=== PATIENT | male | born 1960 | race Caucasian/White ===

== ENCOUNTER 2018-02-21 11:22 | Emergency (ER) | payer MEDICARE, MEDICAID ==
[~2018-02-21] VITALS: Ht 182.9 cm; Wt 81.7 kg
[~2018-02-21 11:22] MED LIST: AUGMENTIN 875-1 EACH PO; DIAZEPAM 5 MG5 M1; DIAZEPAM10 M1; DULCOLAX; EX-LAX15 M1; FLONASE 0.05%50 MCG NASAL; MIRALAX255 GM; PREDNISONE; PREDNISONE 10 M10 MG PO; PREDNISONE 20 M20 MG PO; PROVENTIL HFA6.7 G1 INH; VALIUM5 MG PO; VISTARIL 25 MG25 M1 OR
[2018-02-21 12:02] LABS: ABSOLUTE BASOPHILS 0.1 thou/uL (0.0-0.2); ABSOLUTE EOSINOPHILS 0.1 thou/uL (0.0-0.7); ABSOLUTE LYMPHOCYTES 1.9 thou/uL (0.8-5.3); ABSOLUTE MONOCYTES 0.6 thou/uL (0.0-1.2); ABSOLUTE NEUTROPHILS 6.1 thou/uL (1.6-8.1); BASOPHILS 0.9 %; EOSINOPHILS 0.9 %; HEMOGLOBIN 14.4 gm/dL (14.0-18.0); LYMPHOCYTES 21.9 %; MCH 31.8 pg (26.0-34.0); MCHC 34.4 g/dL (28.0-37.0); MCV 92.4 fL (80.0-100.0); MONOCYTES 7.1 %; MPV 7.6 fl. (7.2-11.1); NUCLEATED RBCS 0 /100WBC; PLATELET COUNT* 245 thou/uL (150-400); POLYS 69.2 %; RBC 4.55 mil/uL (4.50-6.00); RDW-CV 14.1 % (10.5-14.5); WBC 8.8 thou/uL (4.0-11.0)
[2018-02-21 12:11] LABS: ANION GAP 9 mmol/L (7-16); BUN 16 mg/dL (7-18); CALCIUM 8.1 mg/dL (8.5-10.1); CHLORIDE 105 mmol/L (98-107); CO2 23 mmol/L (21-32); CREATININE 0.9 mg/dL (0.6-1.3); GLUCOSE 118 mg/dL (70-99); POTASSIUM 3.8 mmol/L (3.5-5.1); SODIUM 137 mmol/L (136-145)
[2018-02-21 12:15] LABS: URINE BILIRUBIN NEGATIVE (Negative); URINE BLOOD 1+ (Negative); URINE CLARITY CLEAR; URINE COLOR YELLOW; URINE GLUCOSE-RANDOM NEGATIVE (Negative); URINE KETONES NEGATIVE (Negative); URINE LEUKOCYTES-REFLEX NEGATIVE (Negative); URINE NITRITE-REFLEX NEGATIVE (Negative); URINE PROTEIN NEGATIVE (Negative); URINE UROBILINOGEN 0.2 E.U./dl (0.2-1.0)
[2018-02-21 12:18] LABS: ALBUMIN 3.7 g/dL (3.4-5.0); ALKALINE PHOSPHATASE 79 U/L (46-116); LIPASE 108 U/L (73-393); SGOT 22 U/L (15-37); SGPT 53 U/L (30-65); TOTAL BILIRUBIN 0.3 mg/dL (<0.1-1.0); TROPONIN-I LEVEL <0.06 ng/mL (<0.06)
[2018-02-21 12:20] LABS: BACTERIA-REFLEX 1-9 Few /HPF (None Seen); MUCUS None Seen strn/LPF (None Seen); SQUAMOUS 0-3 Few /LPF (0-3); URINE RBC 3-10 Few /HPF (0-2); URINE WBC-REFLEX 0-5 Rare /HPF (0-5)
[2018-02-21 12:21] LABS: CASTS None Seen /LPF (None Seen); CRYSTALS None Seen /LPF (None Seen)
[2018-02-21 15:17] VITALS: BP 137/85
--- NOTE | 2018-02-22 09:38 | EKG ---
[place] [address] ELECTROCARDIOGRAM REPORT Name: TAJ HERNANDEZ Room: [facility]#: [id number] Admission: 02/21/18 Attend Phys: Discharge: 02/21/18 Date of : 60 Report #: [id number] THIS REPORT FOR: //name// [facility] ED Test Date: 2018-02-21 Test Time: 12:19:14 Pat Name: TAJ HERNANDEZ Department: Room: Gender: M Robotics Engineer: : 1960 Requested By: Gal Syed Order Number: [id number] MD: George Toney Measurements Intervals [place] Rate: 54 P: 75 DC: 188 QRS: 77 QRSD: 91 T: 64 QT: 426 QTc: 404 Interpretive Statements Sinus rhythm Probable left atrial enlargement Nonspecific T abnrm, anterolateral leads Compared to ECG 10/28/2011 22:43:23 No significant changes Electronically Signed On 02-22-2018 9:38:01 CDT by George Toney [email or web address] <ELECTRONICALLY SIGNED> By: George Toney MD, [facility] 02/22/18 0938 1219 1219 George Toney MD, [facility] /EPI
== END 2018-02-21 15:17 | disposition home or self-care (01) ==
LOC: M.ERS 11:22
PROVIDERS: Emergency Medicine
DX: R10.11 Right upper quadrant pain (principal); R31.9 Hematuria, unspecified; N28.89 Other specified disorders of kidney and ureter; F32.9 Major depressive disorder, single episode, unspecified; M54.9 Dorsalgia, unspecified; G89.29 Other chronic pain; Z88.5 Allergy status to narcotic agent; Z91.030 Bee allergy status; R42 Dizziness and giddiness

== ENCOUNTER 2018-03-05 12:05 | Emergency (ER) | payer MEDICARE, MEDICAID ==
[~2018-03-05] VITALS: Ht 182.9 cm; Wt 79.4 kg
[2018-03-05 12:43] LABS: ABSOLUTE BASOPHILS 0.1 thou/uL (0.0-0.2); ABSOLUTE LYMPHOCYTES 1.5 thou/uL (0.8-5.3); ABSOLUTE MONOCYTES 0.5 thou/uL (0.0-1.2); ABSOLUTE NEUTROPHILS 7.8 thou/uL (1.6-8.1); BASOPHILS 0.6 %; EOSINOPHILS 0.4 %; HEMATOCRIT 45.4 % (42.0-52.0); HEMOGLOBIN 15.4 gm/dL (14.0-18.0); LYMPHOCYTES 15.4 %; MCH 31.6 pg (26.0-34.0); MCV 92.8 fL (80.0-100.0); MONOCYTES 5.1 %; MPV 7.9 fl. (7.2-11.1); NUCLEATED RBCS 0 /100WBC; PLATELET COUNT* 270 thou/uL (150-400); POLYS 78.5 %; RDW-CV 13.8 % (10.5-14.5)
[2018-03-05 13:30] LABS: CREATININE 0.9 mg/dL (0.6-1.3)
[2018-03-05 13:40] LABS: ALBUMIN 4.1 g/dL (3.4-5.0); TOTAL BILIRUBIN 0.5 mg/dL (<0.1-1.0); TOTAL PROTEIN 7.7 g/dL (6.4-8.2)
[2018-03-05 14:05] LABS: URINE BILIRUBIN NEGATIVE (Negative); URINE BLOOD TRACE (Negative); URINE CLARITY CLEAR; URINE COLOR YELLOW; URINE GLUCOSE-RANDOM NEGATIVE (Negative); URINE KETONES NEGATIVE (Negative); URINE LEUKOCYTES-REFLEX NEGATIVE (Negative); URINE NITRITE-REFLEX NEGATIVE (Negative); URINE PROTEIN NEGATIVE (Negative); URINE SPECIFIC GRAVITY <= 1.005 (1.005-1.030); URINE UROBILINOGEN 0.2 E.U./dl (0.2-1.0)
[2018-03-05] MEDS ORDERED: BUTALB-APAP-CA1 EACH PO (14:30)
[2018-03-05 14:44] VITALS: BP 155/64
--- NOTE | 2018-03-07 10:28 | EKG ---
[place] [address] ELECTROCARDIOGRAM REPORT Name: TAJ HERNANDEZ Room: [facility]#: [id number] Admission: 03/05/18 Attend Phys: Discharge: 03/05/18 Date of : 60 Report #: [id number] THIS REPORT FOR: //name// [facility] ED Test Date: 2018-03-05 Test Time: 13:03:11 Pat Name: TAJ HERNANDEZ Department: Room: Gender: M Client Service Professional: Domenic CRUZ : 1960 Requested By: Marisol Newberry Order Number: [id number] MD: Demarcus David Measurements Intervals [place] Rate: 53 P: 68 [place]: 188 QRS: 81 QRSD: 98 T: 62 QT: 443 QTc: 416 Interpretive Statements Sinus rhythm Normal ekg Electronically Signed On 03-07-2018 10:28:43 CDT by Demarcus David [email or web address] <ELECTRONICALLY SIGNED> By: Demarcus David MD, [facility] 03/07/18 1028 1303 1303 Demarcus David MD, [facility] /EPI
== END 2018-03-05 14:45 | disposition home or self-care (01) ==
LOC: M.ERS 12:05
PROVIDERS: Personal Emergency Response Attendant
DX: R51 Headache (principal); R11.2 Nausea with vomiting, unspecified; F32.9 Major depressive disorder, single episode, unspecified; G89.29 Other chronic pain; M54.9 Dorsalgia, unspecified; Z88.5 Allergy status to narcotic agent; Z88.6 Allergy status to analgesic agent; Z91.030 Bee allergy status

== ENCOUNTER 2018-03-19 17:45 | Emergency (ER) | payer MEDICARE, MEDICAID ==
[~2018-03-19] VITALS: Ht 182.9 cm; Wt 79.4 kg
[~2018-03-19 17:45] MED LIST changes: +BUTALB-APAP-CA1 EACH PO
[2018-03-19 19:39] LABS: URINE BILIRUBIN NEGATIVE (Negative); URINE BLOOD NEGATIVE (Negative); URINE CLARITY CLEAR; URINE COLOR YELLOW; URINE GLUCOSE-RANDOM NEGATIVE (Negative); URINE KETONES NEGATIVE (Negative); URINE LEUKOCYTES-REFLEX NEGATIVE (Negative); URINE NITRITE-REFLEX NEGATIVE (Negative); URINE PROTEIN NEGATIVE (Negative); URINE UROBILINOGEN 0.2 E.U./dl (0.2-1.0)
[2018-03-19] MEDS ORDERED: BUTALB-APAP-CA1 EACH PO (19:43)
[2018-03-19 19:58] VITALS: BP 141/82
== END 2018-03-19 20:01 | disposition home or self-care (01) ==
LOC: M.ERS 17:45
PROVIDERS: Nurse Practitioner Family
DX: R51 Headache (principal); F32.9 Major depressive disorder, single episode, unspecified; G89.29 Other chronic pain; M54.9 Dorsalgia, unspecified; Z88.6 Allergy status to analgesic agent; Z91.030 Bee allergy status; Z88.5 Allergy status to narcotic agent

== ENCOUNTER 2018-03-24 12:25 | Emergency (ER) | payer MEDICARE, MEDICAID ==
[~2018-03-24] VITALS: Ht 182.9 cm; Wt 79.4 kg
[2018-03-24] MEDS ORDERED: BUTALB-APAP-CA1 EACH PO (13:07)
[2018-03-24 13:27] VITALS: BP 133/76
== END 2018-03-24 13:23 | disposition home or self-care (01) ==
LOC: M.ERS 12:25
DX: G43.909 Migraine, unspecified, not intractable, without status migrainosus (principal); Z76.0 Encounter for issue of repeat prescription; F32.9 Major depressive disorder, single episode, unspecified; M54.9 Dorsalgia, unspecified; G89.29 Other chronic pain; Z88.5 Allergy status to narcotic agent; Z91.030 Bee allergy status

== ENCOUNTER 2018-09-09 12:01 | Emergency (ER) | payer MEDICARE, MEDICAID ==
[~2018-09-09] VITALS: Ht 182.9 cm; Wt 81.7 kg
[2018-09-09] MEDS ORDERED: TOPAMAX 25 MG T25 M1 PO (12:17)
[2018-09-09] MEDS ORDERED: BUTALB-APAP-CA1 EACH PO (12:53)
[2018-09-09] MEDS ORDERED: ONDANSETRON HCL4 M2 PO (13:19)
[2018-09-09 13:32] VITALS: BP 172/98
== END 2018-09-09 13:32 | disposition home or self-care (01) ==
LOC: M.ERS 12:01
DX: G43.109 Migraine with aura, not intractable, without status migrainosus (principal); F32.9 Major depressive disorder, single episode, unspecified; M54.9 Dorsalgia, unspecified; G89.29 Other chronic pain; Z91.030 Bee allergy status; Z88.5 Allergy status to narcotic agent; Z88.8 Allergy status to other drugs, medicaments and biological substances

== ENCOUNTER 2018-12-30 14:51 | Emergency (ER) | payer MEDICARE, MEDICAID ==
[~2018-12-30] VITALS: Ht 182.9 cm; Wt 77.1 kg
[~2018-12-30 14:51] MED LIST changes: +ONDANSETRON HCL4 M2 PO; +TOPAMAX 25 MG T25 M1 PO
[2018-12-30 15:49] LABS: ABSOLUTE LYMPHOCYTES 1.4 thou/uL (0.8-5.3); ABSOLUTE MONOCYTES 0.8 thou/uL (0.0-1.2); ABSOLUTE NEUTROPHILS 9.9 thou/uL (1.6-8.1); BASOPHILS 0.3 %; EOSINOPHILS 0.1 %; HEMATOCRIT 47.1 % (42.0-52.0); HEMOGLOBIN 16.2 gm/dL (14.0-18.0); LYMPHOCYTES 11.5 %; MCH 31.2 pg (26.0-34.0); MCHC 34.3 g/dL (28.0-37.0); MCV 90.9 fL (80.0-100.0); MONOCYTES 6.6 %; MPV 8.2 fl. (7.2-11.1); NUCLEATED RBCS 0 /100WBC; PLATELET COUNT* 307 thou/uL (150-400); POLYS 81.5 %; RBC 5.18 mil/uL (4.50-6.00); RDW-CV 13.6 % (10.5-14.5); WBC 12.1 thou/uL (4.0-11.0)
[2018-12-30 16:22] LABS: CREATININE 1.2 mg/dL (0.6-1.3)
[2018-12-30 16:27] LABS: ALBUMIN 4.7 g/dL (3.4-5.0); TOTAL BILIRUBIN 0.7 mg/dL (<0.1-1.0); TOTAL PROTEIN 8.6 g/dL (6.4-8.2)
[2018-12-30] MEDS ORDERED: ZOFRAN ODT4 MG PO (18:00)
[2018-12-30] MEDS ORDERED: POTASSIUM20 PO (18:02)
[2018-12-30] MEDS ORDERED: BUTALB-APAP-CA1 EACH PO (18:03)
[2018-12-30 18:09] VITALS: BP 132/81
== END 2018-12-30 18:11 | disposition home or self-care (01) ==
LOC: M.ERS 14:51
PROVIDERS: Physician Assistant
DX: E87.6 Hypokalemia (principal); R11.2 Nausea with vomiting, unspecified; Z76.0 Encounter for issue of repeat prescription; R10.13 Epigastric pain; F32.9 Major depressive disorder, single episode, unspecified; G43.909 Migraine, unspecified, not intractable, without status migrainosus; M54.9 Dorsalgia, unspecified; G89.29 Other chronic pain; Z91.030 Bee allergy status; Z88.5 Allergy status to narcotic agent; Z88.8 Allergy status to other drugs, medicaments and biological substances

== ENCOUNTER 2019-01-23 20:13 | Emergency (ER) | payer MEDICARE, MEDICAID | END 2019-01-23 23:31 | disposition home or self-care (01) | LOC: M.ERS 20:13 | DX: G43.901 Migraine, unspecified, not intractable, with status migrainosus (principal); J33.8 Other polyp of sinus; F32.9 Major depressive disorder, single episode, unspecified; G89.29 Other chronic pain; Z79.899 Other long term (current) drug therapy; Z88.5 Allergy status to narcotic agent; Z88.6 Allergy status to analgesic agent; Z91.030 Bee allergy status ==

== ENCOUNTER 2019-07-26 12:38 | Emergency (ER) | payer OTHER, MEDICAID ==
[~2019-07-26] VITALS: Ht 182.9 cm; Wt 81.7 kg
[~2019-07-26 12:38] MED LIST changes: +CARAFATE 1 GM TA1 G1 PO; +PHENERGAN 25 MG25 M1 PO; +POTASSIUM20 PO; +ZOFRAN ODT4 MG PO
[2019-07-26] MEDS ORDERED: ONDANSETRON ODT4 MG PO (14:01)
[2019-07-26] MEDS ORDERED: BUTALB-APAP-CA1 EACH PO (14:01)
[2019-07-26 14:15] VITALS: BP 158/97
== END 2019-07-26 14:16 | disposition home or self-care (01) ==
LOC: M.ERS 12:38
DX: G43.909 Migraine, unspecified, not intractable, without status migrainosus (principal); F32.9 Major depressive disorder, single episode, unspecified; G89.29 Other chronic pain; M54.9 Dorsalgia, unspecified; Z98.890 Other specified postprocedural states; Z88.5 Allergy status to narcotic agent; Z91.030 Bee allergy status

== ENCOUNTER 2019-08-27 12:27 | Emergency (ER) | payer OTHER, MEDICAID ==
[~2019-08-27] VITALS: Ht 182.9 cm; Wt 79.4 kg
[~2019-08-27 12:27] MED LIST changes: +ONDANSETRON ODT4 MG PO
[2019-08-27 12:44] LABS: URINE BLOOD TRACE (Negative); URINE CLARITY CLEAR; URINE COLOR YELLOW; URINE GLUCOSE-RANDOM NEGATIVE (Negative); URINE KETONES 1+ (Negative); URINE LEUKOCYTES-REFLEX NEGATIVE (Negative); URINE NITRITE-REFLEX NEGATIVE (Negative); URINE PROTEIN NEGATIVE (Negative); URINE SPECIFIC GRAVITY 1.025 (1.005-1.030); URINE UROBILINOGEN 0.2 E.U./dl (0.2-1.0)
[2019-08-27 12:45] LABS: ICTOTEST (BILI CONFIRMATORY) Negative (Negative); URINE BILIRUBIN 1+ (Negative)
[2019-08-27 13:25] LABS: ABSOLUTE BASOPHILS 0.1 thou/uL (0.0-0.2); ABSOLUTE MONOCYTES 0.6 thou/uL (0.0-1.2); ABSOLUTE NEUTROPHILS 5.7 thou/uL (1.6-8.1); BASOPHILS 1.1 %; EOSINOPHILS 0.1 %; HEMATOCRIT 41.5 % (42.0-52.0); HEMOGLOBIN 14.9 gm/dL (14.0-18.0); LYMPHOCYTES 24.1 %; MCHC 35.8 g/dL (28.0-37.0); MCV 89.3 fL (80.0-100.0); MONOCYTES 7.2 %; MPV 8.3 fl. (7.2-11.1); NUCLEATED RBCS 0 /100WBC; PLATELET COUNT* 258 thou/uL (150-400); POLYS 67.5 %; RBC 4.64 mil/uL (4.50-6.00); RDW-CV 13.6 % (10.5-14.5); WBC 8.4 thou/uL (4.0-11.0)
[2019-08-27 13:36] LABS: CALCIUM 8.9 mg/dL (8.5-10.1); CREATININE 1.1 mg/dL (0.6-1.3); POTASSIUM 3.8 mmol/L (3.5-5.1)
[2019-08-27 13:51] LABS: ALBUMIN 3.7 g/dL (3.4-5.0); TOTAL BILIRUBIN 0.8 mg/dL (<0.1-1.0); TOTAL PROTEIN 7.3 g/dL (6.4-8.2)
[2019-08-27 14:40] LABS: INFLUENZA A ANTIGEN Negative (Negative); INFLUENZA B ANTIGEN Negative (Negative)
[2019-08-27] MEDS ORDERED: MEDROLDOSEPACK PO (14:55)
[2019-08-27] MEDS ORDERED: AUGMENTIN 875-1 EACH PO (14:55)
[2019-08-27] MEDS ORDERED: ZOFRAN4 MG PO (14:55)
[2019-08-27] MEDS ORDERED: BENTYL 20 MG TA20 M1 PO (14:55)
[2019-08-27] MEDS ORDERED: VENTOLIN HFA 1818 GM INH (14:55)
[2019-08-27 15:31] VITALS: BP 143/99
--- NOTE | 2019-08-28 08:47 | EKG ---
[place] [address] ELECTROCARDIOGRAM REPORT Name: TAJ HERNANDEZ Room: [facility]#: [id number] Admission: 08/27/19 Attend Phys: Discharge: 08/27/19 Date of : 60 Date of Service: 08/27/19 1310 Report #: [id number] THIS REPORT FOR: //name// [facility] ED Test Date: 2019-08-27 Test Time: 13:10:05 Pat Name: TAJ HERNANDEZ Department: Room: Gender: Shadow Graph Weight Operator: NEENA : 1960 Requested By: Christen Palmer Order Number: [id number] MD: Felix Lindo Measurements Intervals [place] Rate: 69 P: 98 [place]: 188 QRS: 98 QRSD: 95 T: 61 QT: 384 QTc: 412 Interpretive Statements Sinus rhythm Consider left atrial enlargement septal q waves Baseline wander in lead(s) I,II,aVR Compared to ECG 03/05/2018 13:03:11 Myocardial infarct finding now present Electronically Signed On 08-28-2019 8:46:06 COMPUTER NUMERICAL CONTROL GRINDER by Felix Lindo [email or web address] <ELECTRONICALLY SIGNED> By: Felix Lindo MD, [facility] 08/28/19 0846 1310 Felix Lindo MD, [facility] /EPI
== END 2019-08-27 15:33 | disposition home or self-care (01) ==
LOC: M.ERS 12:27
PROVIDERS: Nurse Practitioner Family
DX: G43.909 Migraine, unspecified, not intractable, without status migrainosus (principal); B34.9 Viral infection, unspecified; R11.2 Nausea with vomiting, unspecified; F32.9 Major depressive disorder, single episode, unspecified; G89.29 Other chronic pain; M54.9 Dorsalgia, unspecified; Z98.890 Other specified postprocedural states; Z88.5 Allergy status to narcotic agent; Z91.030 Bee allergy status

== ENCOUNTER 2019-10-25 12:30 | Inpatient (IN) | payer OTHER, MEDICAID ==
[~2019-10-25] VITALS: Ht 182.9 cm; Wt 74.6 kg
[~2019-10-25 12:30] MED LIST changes: +BENTYL 20 MG TA20 M1 PO; +MEDROLDOSEPACK PO; +VENTOLIN HFA 1818 GM INH; +ZOFRAN4 MG PO
[2019-10-25 12:35] VITALS: BP 167/109
[2019-10-25 13:14] LABS: CALCIUM 9.2 mg/dL (8.5-10.1); CREATININE 1.1 mg/dL (0.6-1.3); POTASSIUM 3.6 mmol/L (3.5-5.1)
[2019-10-25 13:19] LABS: ALBUMIN 4.5 g/dL (3.4-5.0); TOTAL BILIRUBIN 0.4 mg/dL (<0.1-1.0); TOTAL PROTEIN 7.9 g/dL (6.4-8.2)
[2019-10-25 13:35] LABS: URINE BLOOD 1+ (Negative); URINE CLARITY CLEAR; URINE COLOR BROWN; URINE GLUCOSE-RANDOM NEGATIVE (Negative); URINE KETONES 1+ (Negative); URINE LEUKOCYTES-REFLEX TRACE (Negative); URINE PROTEIN TRACE (Negative); URINE SPECIFIC GRAVITY 1.025 (1.005-1.030); URINE UROBILINOGEN 0.2 E.U./dl (0.2-1.0)
[2019-10-25 13:42] LABS: URINE BILIRUBIN 1+ (Negative); URINE NITRITE-REFLEX POSITIVE (Negative)
[2019-10-25 13:43] LABS: CALCIUM OXALATE 0-3 Few /LPF (None Seen); CASTS None Seen /LPF (None Seen); MUCUS 4-6 Moderate strn/LPF (None Seen); SQUAMOUS 0-3 Few /LPF (0-3); URINE RBC 3-10 Few /HPF (0-2); URINE WBC-REFLEX 6-15 Few /HPF (0-5)
[2019-10-25 13:45] LABS: ABSOLUTE BASOPHILS 0.1 thou/uL (0.0-0.2); ABSOLUTE LYMPHOCYTES 1.8 thou/uL (0.8-5.3); ABSOLUTE MONOCYTES 0.8 thou/uL (0.0-1.2); ABSOLUTE NEUTROPHILS 10.6 thou/uL (1.6-8.1); BASOPHILS 0.6 %; EOSINOPHILS 0.2 %; HEMATOCRIT 41.5 % (42.0-52.0); HEMOGLOBIN 14.2 gm/dL (14.0-18.0); LYMPHOCYTES 13.3 %; MCH 31.7 pg (26.0-34.0); MCHC 34.3 g/dL (28.0-37.0); MCV 92.4 fL (80.0-100.0); MONOCYTES 6.1 %; MPV 8.1 fl. (7.2-11.1); NUCLEATED RBCS 0 /100WBC; PLATELET COUNT* 262 thou/uL (150-400); POLYS 79.8 %; RBC 4.49 mil/uL (4.50-6.00); RDW-CV 14.3 % (10.5-14.5); WBC 13.2 thou/uL (4.0-11.0)
[2019-10-25 13:46] LABS: ICTOTEST (BILI CONFIRMATORY) Negative (Negative)
[2019-10-25 13:53] LABS: INFLUENZA A ANTIGEN Negative (Negative); INFLUENZA B ANTIGEN Negative (Negative)
--- NOTE | 2019-10-25 14:45 | EKG ---
[place] [address] ELECTROCARDIOGRAM REPORT Name: MARYTAJ Mason Room: [facility]#: [id number] Admission: 10/25/19 Attend Phys: Discharge: Date of : 60 Date of Service: 10/25/19 1259 Report #: [id number] THIS REPORT FOR: //name// [facility] ED Test Date: 2019-10-25 Test Time: 12:59:17 Pat Name: TAJ HERNANDEZ Department: Room: Gender: Environmental Sampling Technician: : 1960 Requested By: Roxi Priest Order Number: [id number] MD: Felix Lindo Measurements Intervals [place] Rate: 74 P: 79 PA: 191 QRS: 84 QRSD: 104 T: 55 QT: 398 QTc: 442 Interpretive Statements Sinus arrhythmia Probable left atrial enlargement Compared to ECG 08/27/2019 13:10:05 Sinus rhythm no longer present Q waves no longer present Electronically Signed On 10-25-2019 14:44:02 CDT by Felix Lindo [email or web address] <ELECTRONICALLY SIGNED> By: Felix Lindo MD, [facility] 10/25/19 1444 1259 1259 Felix Lindo MD, [facility] /EPI
[2019-10-25 17:58] VITALS: BP 139/100
[2019-10-25 18:46] VITALS: BP 137/79
--- NOTE | 2019-10-25 19:10 | NUR ---
RECEIVED REPORT FROM ED AND ASSUMED CARE OF PT @ 8050.MED-SURG STATUS.C/O NAUSEA-MEDICATIONS GIVEN IN ED.CALL LIGHT AND FALL PRECAUTIONS IN PLACE.WILL CONTINUE TO MONITOR.
[2019-10-25 20:00] VITALS: BP 154/80
[2019-10-26] VITALS: BP 141/76
[2019-10-26 02:19] LABS: AMP/METHAMP Negative (Negative); BARBITURATES Negative (Negative); BENZODIAZEPINES Negative (Negative); COCAINE Negative (Negative); METHADONE Negative (Negative); OPIATES Negative (Negative); PCP Negative (Negative); THC POSITIVE (Negative)
--- NOTE | 2019-10-26 03:08 | NUR ---
ASSUMED CARE FROM DAY SHIFT PT RESTING IN BED DENIES SOA OR COGUH V/O ABD CRAMPING REFUSE PAIN MEDICATION AT THIS TIME. DISCUSSED PLAN OF CARE AND PT IS AGREEABLE. URINE SAMPLE SENT TO LAB ORDERD IV FLUIDS INFUSING WELL PT TOLERATING ABX. WILL CONITUE WITH CURRENT PLAN OF CARE.
[2019-10-26 04:00] VITALS: BP 113/71
[2019-10-26 07:45] VITALS: BP 126/69
[2019-10-26 12:17] VITALS: BP 150/84
--- NOTE | 2019-10-26 16:19 | NUR ---
CM called Pt's room phone, no answer. Will try later
--- NOTE | 2019-10-26 16:19 | NUR ---
REMAINS A&OX4. RESPIRATIONS EVEN AND UNLABORED ON ROOM AIR. DENIES PAIN. MEDICATED WITH PRN PAIN MED PER MD ORDER. CONTINUES ON IV ATBX WITHOUT S/SX OF ADVERSE REACTIONS. UP AD WILFRED IN ROOM WITH WALKING CANE. VSS. CALL MASON AND PERSONAL ITEMS WITHIN REACH. NSG WILL CONTINUE TO ASSESS.
[2019-10-26 16:45] VITALS: BP 155/86
[2019-10-26 20:00] VITALS: BP 177/90
[2019-10-27 00:25] VITALS: BP 129/65
--- NOTE | 2019-10-27 06:22 | NUR ---
PATIENT SLEPT PART OF THE NIGHT. IV FLUIDS AND ANTBIOTICS WERE GIVEN ORDERED. PATIENT WAS GIVEN PAIN MEDICINE ONCE FOR A HEADACHE. WILL CONTINUE TO MONITOR.
[2019-10-27 08:10] VITALS: BP 134/79
[2019-10-27] MEDS ORDERED: FLAGYL500 M1 PO (11:06)
[2019-10-27] MEDS ORDERED: CIPRO500 MG PO (11:06)
[2019-10-27] MEDS ORDERED: BUTALB-APAP-CA1 EACH PO ×3 (11:15→11:20)
[2019-10-27 12:14] VITALS: BP 134/79
--- NOTE | 2019-10-27 12:48 | NUR ---
ASSUMED CARE OF PATIENT AT APPROX 0730. ALERT AND ORIENRED X4. VSS ON ROOM AIR. NO COMPLAINTS EXPRESSED TO THIS NURSE. PATIENT DISCHARGED AT 1238 WITH ALL PERSONAL BELONGINGS, PRESCRIPTION AND DISCHARGE INFORMATION.
== END 2019-10-27 12:38 | disposition home or self-care (01) | DRG 372 ==
LOC: M.ERS 12:30 → M.2W 15:53 → M.TBA-ER 15:53 → M.2W 18:11
PROVIDERS: Nurse Practitioner Family; ADMIT Internal Medicine
DX: A04.9 Bacterial intestinal infection, unspecified (principal); R65.10 Systemic inflammatory response syndrome (SIRS) of non-infectious origin without acute organ dysfunction; N30.01 Acute cystitis with hematuria; G43.909 Migraine, unspecified, not intractable, without status migrainosus; G44.89 Other headache syndrome; H54.7 Unspecified visual loss; F32.9 Major depressive disorder, single episode, unspecified; N28.89 Other specified disorders of kidney and ureter; M54.9 Dorsalgia, unspecified; Z20.828 Contact with and (suspected) exposure to other viral communicable diseases; G89.29 Other chronic pain; Z79.899 Other long term (current) drug therapy; Z88.5 Allergy status to narcotic agent; Z88.8 Allergy status to other drugs, medicaments and biological substances; Z91.030 Bee allergy status

== ENCOUNTER 2019-11-01 10:04 | Emergency (ER) | payer OTHER, MEDICAID ==
[~2019-11-01] VITALS: Ht 182.9 cm; Wt 77.1 kg
[~2019-11-01 10:04] MED LIST changes: +CIPRO500 MG PO; +FLAGYL500 M1 PO
[2019-11-01 11:11] LABS: ABSOLUTE EOSINOPHILS 0.1 thou/uL (0.0-0.7); ABSOLUTE LYMPHOCYTES 1.4 thou/uL (0.8-5.3); ABSOLUTE MONOCYTES 0.7 thou/uL (0.0-1.2); ABSOLUTE NEUTROPHILS 7.6 thou/uL (1.6-8.1); BASOPHILS 0.5 %; EOSINOPHILS 1.1 %; HEMATOCRIT 37.7 % (42.0-52.0); HEMOGLOBIN 13.1 gm/dL (14.0-18.0); LYMPHOCYTES 14.1 %; MCH 32.3 pg (26.0-34.0); MCHC 34.8 g/dL (28.0-37.0); MCV 92.6 fL (80.0-100.0); MONOCYTES 6.9 %; MPV 8.3 fl. (7.2-11.1); NUCLEATED RBCS 0 /100WBC; PLATELET COUNT* 248 thou/uL (150-400); POLYS 77.4 %; RBC 4.07 mil/uL (4.50-6.00); RDW-CV 14.8 % (10.5-14.5); WBC 9.8 thou/uL (4.0-11.0)
[2019-11-01 11:25] LABS: CALCIUM 8.1 mg/dL (8.5-10.1); CREATININE 0.9 mg/dL (0.6-1.3); POTASSIUM 3.9 mmol/L (3.5-5.1)
[2019-11-01 11:29] LABS: ALBUMIN 3.4 g/dL (3.4-5.0); TOTAL BILIRUBIN 0.3 mg/dL (<0.1-1.0); TOTAL PROTEIN 6.2 g/dL (6.4-8.2)
[2019-11-01 12:48] LABS: URINE BILIRUBIN NEGATIVE (Negative); URINE BLOOD NEGATIVE (Negative); URINE CLARITY CLEAR; URINE COLOR YELLOW; URINE GLUCOSE-RANDOM NEGATIVE (Negative); URINE KETONES NEGATIVE (Negative); URINE LEUKOCYTES-REFLEX NEGATIVE (Negative); URINE NITRITE-REFLEX NEGATIVE (Negative); URINE PROTEIN NEGATIVE (Negative); URINE SPECIFIC GRAVITY 1.015 (1.005-1.030); URINE UROBILINOGEN 0.2 E.U./dl (0.2-1.0)
[2019-11-01] MEDS ORDERED: HYDROCORTISONE30 G9 RECTAL (13:32)
[2019-11-01] MEDS ORDERED: LORCET 5-325 M1 EACH PO (13:36)
[2019-11-01] MEDS ORDERED: LIDOCAINE 2%2 %/5 GM TOP (13:39)
[2019-11-01] MEDS ORDERED: ONDANSETRON ODT4 MG PO (13:43)
[2019-11-01 15:06] VITALS: BP 167/86
--- NOTE | 2019-11-01 17:32 | EKG ---
[place] [address] ELECTROCARDIOGRAM REPORT Name: JAMES HERNANDEZ Room: [facility]#: [id number] Admission: 11/01/19 Attend Phys: Discharge: 11/01/19 Date of : 60 Date of Service: 11/01/19 1102 Report #: [id number] THIS REPORT FOR: //name// [facility] ED Test Date: 2019-11-01 Test Time: 11:02:12 Pat Name: JAMES HERNANDEZ Department: Room: Gender: Airline Lounge Receptionist: [facility] : 1960 Requested By: Thanh Velez Order Number: [id number] MD: James Fatima Measurements Intervals [place] Rate: 52 P: 63 MA: 186 QRS: 71 QRSD: 102 T: 55 QT: 497 QTc: 463 Interpretive Statements Sinus rhythm Compared to ECG 10/25/2019 12:59:17 Sinus arrhythmia no longer present Electronically Signed On 11-01-2019 17:30:25 CDT by James Fatima [email or web address] <ELECTRONICALLY SIGNED> By: James Fatima MD, [facility] 11/01/19 1730 1102 1102 James Fatima MD, [facility] /EPI
== END 2019-11-01 15:08 | disposition home or self-care (01) ==
LOC: M.ERS 10:04
PROVIDERS: Physician Assistant
DX: K64.4 Residual hemorrhoidal skin tags (principal); R10.84 Generalized abdominal pain; M54.9 Dorsalgia, unspecified; G43.909 Migraine, unspecified, not intractable, without status migrainosus; G89.29 Other chronic pain; F32.9 Major depressive disorder, single episode, unspecified; Z91.030 Bee allergy status; Z88.6 Allergy status to analgesic agent

== ENCOUNTER → 2019-11-24 | Outpatient (CLI) | payer OTHER, MEDICAID ==
[~2019-11-24] MED LIST changes: +HYDROCORTISONE30 G9 RECTAL; +LIDOCAINE 2%2 %/5 GM TOP; +LORCET 5-325 M1 EACH PO
== END ==
LOC: M.NUC 06:57
DX: R10.33 Periumbilical pain (principal); R11.2 Nausea with vomiting, unspecified

== ENCOUNTER 2020-02-17 14:06 | Observation (INO) | payer OTHER, MEDICAID ==
[~2020-02-17] VITALS: Ht 182.9 cm; Wt 77.5 kg
[2020-02-17 14:16] VITALS: BP 168/96
[2020-02-17 14:28] LABS: URINE BILIRUBIN NEGATIVE (Negative); URINE BLOOD TRACE (Negative); URINE CLARITY CLEAR; URINE COLOR YELLOW; URINE GLUCOSE-RANDOM NEGATIVE (Negative); URINE KETONES NEGATIVE (Negative); URINE LEUKOCYTES-REFLEX NEGATIVE (Negative); URINE NITRITE-REFLEX NEGATIVE (Negative); URINE PROTEIN NEGATIVE (Negative); URINE SPECIFIC GRAVITY 1.025 (1.005-1.030); URINE UROBILINOGEN 0.2 E.U./dl (0.2-1.0)
[2020-02-17 14:52] LABS: ABSOLUTE BASOPHILS 0.1 thou/uL (0.0-0.2); ABSOLUTE LYMPHOCYTES 2.2 thou/uL (0.8-5.3); ABSOLUTE MONOCYTES 0.7 thou/uL (0.0-1.2); ABSOLUTE NEUTROPHILS 8.3 thou/uL (1.6-8.1); BASOPHILS 0.9 %; EOSINOPHILS 0.2 %; HEMATOCRIT 44.3 % (42.0-52.0); HEMOGLOBIN 15.5 gm/dL (14.0-18.0); LYMPHOCYTES 19.5 %; MCH 32.4 pg (26.0-34.0); MCHC 34.9 g/dL (28.0-37.0); MCV 92.7 fL (80.0-100.0); MONOCYTES 6.3 %; MPV 7.8 fl. (7.2-11.1); NUCLEATED RBCS 0 /100WBC; PLATELET COUNT* 292 thou/uL (150-400); POLYS 73.1 %; RBC 4.78 mil/uL (4.50-6.00); RDW-CV 13.5 % (10.5-14.5); WBC 11.3 thou/uL (4.0-11.0)
[2020-02-17 15:00] LABS: CALCIUM 9.5 mg/dL (8.5-10.1); POTASSIUM 4.1 mmol/L (3.5-5.1)
[2020-02-17 15:05] LABS: ALBUMIN 4.5 g/dL (3.4-5.0); TOTAL BILIRUBIN 0.7 mg/dL (<0.1-1.0); TOTAL PROTEIN 8.2 g/dL (6.4-8.2)
[2020-02-17 15:52] LABS: AMP/METHAMP Negative (Negative); BARBITURATES Negative (Negative); BENZODIAZEPINES Negative (Negative); COCAINE Negative (Negative); METHADONE Negative (Negative); OPIATES Negative (Negative); PCP Negative (Negative); THC POSITIVE (Negative)
[2020-02-17 18:21] VITALS: BP 160/70
[2020-02-17 18:40] VITALS: BP 163/99
[2020-02-17] MEDS ORDERED: PROTONIX40 M2 PO (19:38)
[2020-02-17 21:00] VITALS: BP 148/88
[2020-02-18 03:46] LABS: CHLORIDE 107 mmol/L (98-107); CHOLESTEROL 141 mg/dL (<200); MAGNESIUM 1.8 mg/dL (1.8-2.4); POTASSIUM 3.8 mmol/L (3.5-5.1); SODIUM 140 mmol/L (136-145); TOTAL BILIRUBIN 0.5 mg/dL (<0.1-1.0); TOTAL PROTEIN 6.1 g/dL (6.4-8.2); TRIGLYCERIDE 123 mg/dL (<150); VLDL 25 mg/dL (<40)
[2020-02-18 03:53] LABS: ALBUMIN 3.3 g/dL (3.4-5.0); ALKALINE PHOSPHATASE 57 U/L (46-116); ANION GAP 12 mmol/L (7-16); BUN 11 mg/dL (7-18); CALCIUM 7.8 mg/dL (8.5-10.1); CO2 21 mmol/L (21-32); CREATININE 0.9 mg/dL (0.6-1.3); GLUCOSE 82 mg/dL (70-99); HDL CHOLESTEROL 29 mg/dL (>40); LDL CHOLESTEROL 88 mg/dL (<100); LIPASE 155 U/L (73-393); SGOT 14 U/L (15-37); SGPT 21 U/L (30-65); TC:HDL 4.9 Ratio (Not establshd)
[2020-02-18 03:54] LABS: HEMATOCRIT 37.9 % (42.0-52.0); MCH 32.1 pg (26.0-34.0); MCHC 34.6 g/dL (28.0-37.0); MCV 92.9 fL (80.0-100.0); MPV 7.8 fl. (7.2-11.1); RBC 4.08 mil/uL (4.50-6.00); RDW-CV 13.4 % (10.5-14.5); WBC 8.6 thou/uL (4.0-11.0)
[2020-02-18 04:02] LABS: HEMOGLOBIN 13.1 gm/dL (14.0-18.0); SERUM ASSESSMENT Clear
--- NOTE | 2020-02-18 05:16 | NUR ---
PATIENT SLEPT WELL DURING THIS SHIFT. PT UP WITH STANDBY TO BATHROOM. PT VOIDS YELLOW URINE PER URINAL. PT REQUESTED PAIN MEDICATION X1 AT HS. PT HAS BEEN NPO. FLUIDS INFUSING PER DR ORDER. FREQUENTLY USED ITEMS AND CALL LIGHT WITHIN REACH. SIDERAILS UPX2. WILL CONTINUE TO MONITOR.
[2020-02-18 08:45] VITALS: BP 143/79
--- NOTE | 2020-02-18 11:41 | EKG ---
[place] [address] ELECTROCARDIOGRAM REPORT Name: MARYTAJ Mason Room: [address] ADM IN M.R.#: [id number] Admission: 02/17/20 Attend Phys: Caroline Pascual, Discharge: Date of : 60 Date of Service: 02/17/20 1443 Report #: [id number] THIS REPORT FOR: //name// [facility] ED Test Date: 2020-02-17 Test Time: 14:43:56 Pat Name: TAJ HERNANDEZ Department: Room: [facility] Gender: M Human Resources Compliance Manager: FRANCY : 1960 Requested By: Roxi Priest Order Number: [id number] MD: Jose Antonio Jorgensen Measurements Intervals [place] Rate: 77 P: 78 [place]: 187 QRS: 83 QRSD: 95 T: 54 QT: 403 QTc: 457 Interpretive Statements Sinus rhythm Compared to ECG 11/01/2019 11:02:12 No significant changes Electronically Signed On 02-18-2020 11:41:26 CDT by Jose Antonio Jorgensen [email or web address] <ELECTRONICALLY SIGNED> By: Juan Jorgensen MD, [facility] 02/18/20 1141 1443 1443 Juan Jorgensen MD, [facility] /EPI
[2020-02-18 16:35] VITALS: BP 133/88
--- NOTE | 2020-02-18 18:48 | NUR ---
PATIENT RESTING IN BED. PATIENT IS UP AD WILFRED IN ROOM. PATIENT ADVANCED TO REGULAR DIET THIS EVENING. PATIENT HAS GOOD APPETITE WITH COMPLAINTS OF SOME ABDOMINAL PAIN AFTER EATING, DENIES NEED FOR PAIN MEDICATION AT THIS TIME. PATIENT DENIES ANY NAUSEA. PATIENT DENIES ANY NEEDS AT THIS TIME. CALL LIGHT WITHIN REACH.
[2020-02-18 20:00] VITALS: BP 140/72
--- NOTE | 2020-02-19 05:11 | NUR ---
PT SLEPT WELL OVERNIGHT. HYDROCODONE GIVEN AT HS FOR MILD ABD PAIN. USING URINAL TO VOID AT BEDSIDE. IVF INFUSING PER PUMP WITHOUT DIFFICULTY. AM LABS. ABLE TO USE CALL LITE AND MAKE NEEDS KNOWN. LEGALLY BLIND. TOLERATING DIET WITH SOME NAUSEA BUT NO EMESIS. ANTICIPATING DISCHARGE TODAY IF LABWORK WNL.
--- NOTE | 2020-02-19 05:48 | NUR ---
PT AWAKENED WITH MIGRAINE HEADACHE THIS MORNING, STATES HE GETS THEM DAILY. FIORICET GIVEN AND ICE PACK PER PT REQUEST. WILL CONTINUE TO MONITOR AND PROVIDE CARES NEEDED.
[2020-02-19 07:30] VITALS: BP 134/84
[2020-02-19] MEDS ORDERED: CARAFATE 1 GM TA1 G1 PO (08:37)
--- NOTE | 2020-02-19 09:00 | NUR ---
PT.LAYING IN BED WITH ICE PACK OVER EYES. HE SAID IN GENERAL FEELING BETTER BUT HAS A TERRIBLE MIGRAINE. HE SAID HE LIVES ALONE BUT HAS A COUPLE OF GOOD FRIENDS THAT CAN HELP HIM. 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 HE HAS A CERAMIC SPRAYER 3 TIMES PER WEEK FOR 3 HRS AND 15 MIN.PER VISIT. THIS IS THROUGH HIS MEDICAID. SHE CLEANS, SHOPS FOR HIM, TAKES HIM TO APPTS, ETC. HE HAS NO DME. HE PLANS TO GO HOME TODAY IF HIS HEADACHE GETS BETTER.
[2020-02-19 11:45] VITALS: BP 134/84
--- NOTE | 2020-02-19 13:00 | NUR ---
PATIENT C/O MIGRAINE THIS SHIFT, PRN FIORCET GIVEN ORDERED. PATIENT RATING MIGRAIN 3-4 THIS AFTERNOON AND STATED HE WAS READY TO GO HOME AND HE FELT BETTER. IV DC'D. PATIENT OK TO DISCHARGE PER DR. AMIN. VERALIZES UNDERSTANDING OF PAPERWORK, SCRIPT SENT OVER TO PREFERRED PHARMACY. PATIENT TAKEN OUT VIA WHEELCHAIR WITH ALL BELONGINGS. POT PULLER TAKING PATIENT HOME.
[2020-02-19 22:06] LABS: HEPATITIS B SURFACE AG Negative (Negative)
== END 2020-02-19 13:01 | disposition home or self-care (01) ==
LOC: M.ERS 14:06 → M.3W 16:27 → M.TBA-ER 16:27 → M.3W 18:40
PROVIDERS: Nurse Practitioner Family; ADMIT Internal Medicine; ATTEND Internal Medicine
DX: Z03.818 Encounter for observation for suspected exposure to other biological agents ruled out (principal); K85.90 Acute pancreatitis without necrosis or infection, unspecified; H54.7 Unspecified visual loss; F32.9 Major depressive disorder, single episode, unspecified; G43.909 Migraine, unspecified, not intractable, without status migrainosus; G89.29 Other chronic pain; M54.9 Dorsalgia, unspecified; Z86.19 Personal history of other infectious and parasitic diseases; Z79.899 Other long term (current) drug therapy

== ENCOUNTER 2020-02-26 10:30 | Emergency (ER) | payer OTHER, MEDICAID ==
[~2020-02-26] VITALS: Ht 182.9 cm; Wt 77.1 kg
[~2020-02-26 10:30] MED LIST changes: +PROTONIX40 M2 PO
[2020-02-26] MEDS ORDERED: BUTALB-APAP-CA1 EACH PO (11:48)
[2020-02-26] MEDS ORDERED: IBUPROFEN 800800 M1 PO (11:48)
[2020-02-26] MEDS ORDERED: FLEXERIL PO (11:48)
[2020-02-26 12:04] VITALS: BP 178/99
== END 2020-02-26 12:04 | disposition home or self-care (01) ==
LOC: M.ERS 10:30
DX: M54.5 Low back pain (principal); G89.29 Other chronic pain; G43.909 Migraine, unspecified, not intractable, without status migrainosus; F32.9 Major depressive disorder, single episode, unspecified; Z91.030 Bee allergy status; Z88.1 Allergy status to other antibiotic agents; Z88.6 Allergy status to analgesic agent

== ENCOUNTER 2020-05-04 05:16 | Emergency (ER) | payer OTHER, MEDICAID ==
[~2020-05-04] VITALS: Ht 182.9 cm; Wt 77.1 kg
[~2020-05-04 05:16] MED LIST changes: +FLEXERIL PO; +IBUPROFEN 800800 M1 PO
[2020-05-04 06:14] LABS: ABSOLUTE BASOPHILS 0.1 thou/uL (0.0-0.2); ABSOLUTE EOSINOPHILS 0.1 thou/uL (0.0-0.7); ABSOLUTE LYMPHOCYTES 1.7 thou/uL (0.8-5.3); ABSOLUTE MONOCYTES 0.7 thou/uL (0.0-1.2); ABSOLUTE NEUTROPHILS 9.6 thou/uL (1.6-8.1); BASOPHILS 0.6 %; EOSINOPHILS 0.8 %; HEMATOCRIT 41.3 % (42.0-52.0); HEMOGLOBIN 13.9 gm/dL (14.0-18.0); LYMPHOCYTES 14.2 %; MCH 31.5 pg (26.0-34.0); MCHC 33.7 g/dL (28.0-37.0); MCV 93.5 fL (80.0-100.0); MONOCYTES 5.8 %; MPV 7.7 fl. (7.2-11.1); NUCLEATED RBCS 0 /100WBC; PLATELET COUNT* 221 thou/uL (150-400); POLYS 78.6 %; RBC 4.42 mil/uL (4.50-6.00); RDW-CV 13.6 % (10.5-14.5); WBC 12.3 thou/uL (4.0-11.0)
[2020-05-04 06:25] LABS: CALCIUM 8.6 mg/dL (8.5-10.1); CREATININE 1.1 mg/dL (0.6-1.3); POTASSIUM 3.3 mmol/L (3.5-5.1)
[2020-05-04 06:27] LABS: APTT 24.1 Seconds (25.0-31.3); PROTIME 10.4 Seconds (9.20-11.50)
[2020-05-04 06:29] LABS: ALBUMIN 3.7 g/dL (3.4-5.0); TOTAL BILIRUBIN 0.2 mg/dL (<0.1-1.0)
[2020-05-04 07:01] LABS: URINE BILIRUBIN NEGATIVE (Negative); URINE BLOOD 3+ (Negative); URINE CLARITY CLEAR; URINE COLOR YELLOW; URINE GLUCOSE-RANDOM NEGATIVE (Negative); URINE KETONES NEGATIVE (Negative); URINE LEUKOCYTES-REFLEX NEGATIVE (Negative); URINE NITRITE-REFLEX NEGATIVE (Negative); URINE PROTEIN NEGATIVE (Negative); URINE SPECIFIC GRAVITY >= 1.030 (1.005-1.030); URINE UROBILINOGEN 0.2 E.U./dl (0.2-1.0)
[2020-05-04 07:06] LABS: AMP/METHAMP Negative (Negative); BARBITURATES Negative (Negative); BENZODIAZEPINES Negative (Negative); COCAINE Negative (Negative); METHADONE Negative (Negative); OPIATES Negative (Negative); PCP Negative (Negative); THC POSITIVE (Negative)
[2020-05-04 07:22] LABS: CASTS None Seen /LPF (None Seen); CRYSTALS None Seen /LPF (None Seen); MUCUS 4-6 Moderate strn/LPF (None Seen); SQUAMOUS 0-3 Few /LPF (0-3); URINE WBC-REFLEX 0-5 Rare /HPF (0-5)
[2020-05-04] MEDS ORDERED: PERCOCET 5-3251 EACH PO (08:51)
[2020-05-04] MEDS ORDERED: MACROBID 100 M100 M1 PO (08:51)
[2020-05-04] MEDS ORDERED: FLOMAX0.4 MG PO (08:51)
[2020-05-04 09:09] VITALS: BP 127/75
[2020-05-04] MEDS ORDERED: ZOFRAN ODT4 MG SUBLING (09:15)
--- NOTE | 2020-05-04 15:00 | EKG ---
[place] [address] ELECTROCARDIOGRAM REPORT Name: TAJ HERNANDEZ Room: [facility]#: [id number] Admission: 05/04/20 Attend Phys: Discharge: 05/04/20 Date of : 60 Date of Service: 05/04/2020 Report #: [id number] THIS REPORT FOR: //name// [facility] ED Test Date: 2020-05-04 Test Time: 05:20:28 Pat Name: TAJ HERNANDEZ Department: Room: Gender: Bobbin Doffer: [place] : 1960 Requested By: Marisol Newberry Order Number: [id number] MD: Taj Fatima Measurements Intervals [place] Rate: 62 P: 77 [place]: 197 QRS: 85 QRSD: 103 T: 59 QT: 429 QTc: 436 Interpretive Statements Sinus rhythm Compared to ECG 02/17/2020 14:43:56 No significant changes Electronically Signed On 05-04-2020 15:00:04 CDT by Taj Fatima [email or web address] <ELECTRONICALLY SIGNED> By: Taj Fatima MD, [facility] 05/04/20 1500 9 9 Taj Fatima MD, [facility] /EPI
== END 2020-05-04 10:29 | disposition home or self-care (01) ==
LOC: M.ERS 05:16
PROVIDERS: Personal Emergency Response Attendant
DX: N20.0 Calculus of kidney (principal); G43.909 Migraine, unspecified, not intractable, without status migrainosus; Z91.030 Bee allergy status; Z88.1 Allergy status to other antibiotic agents; Z88.5 Allergy status to narcotic agent; Z79.899 Other long term (current) drug therapy

== ENCOUNTER 2020-08-07 16:40 | Inpatient (IN) | payer OTHER, MEDICAID ==
[~2020-08-07] VITALS: Ht 182.9 cm; Wt 77.1 kg
[~2020-08-07 16:40] MED LIST changes: +FLOMAX0.4 MG PO; +MACROBID 100 M100 M1 PO; +PERCOCET 5-3251 EACH PO; +ZOFRAN ODT4 MG SUBLING
[2020-08-07 16:50] VITALS: BP 173/112
[2020-08-07 17:20] LABS: ABSOLUTE BASOPHILS 0.1 thou/uL (0.0-0.2); ABSOLUTE LYMPHOCYTES 2.6 thou/uL (0.8-5.3); ABSOLUTE MONOCYTES 0.8 thou/uL (0.0-1.2); ABSOLUTE NEUTROPHILS 7.6 thou/uL (1.6-8.1); BASOPHILS 0.8 %; EOSINOPHILS 0.3 %; HEMATOCRIT 45.2 % (42.0-52.0); HEMOGLOBIN 15.3 gm/dL (14.0-18.0); LYMPHOCYTES 23.1 %; MCH 31.2 pg (26.0-34.0); MCHC 33.9 g/dL (28.0-37.0); MCV 92.1 fL (80.0-100.0); MONOCYTES 7.4 %; MPV 7.6 fl. (7.2-11.1); NUCLEATED RBCS 0 /100WBC; PLATELET COUNT* 307 thou/uL (150-400); POLYS 68.4 %; RDW-CV 14.4 % (10.5-14.5); WBC 11.1 thou/uL (4.0-11.0)
[2020-08-07 17:36] LABS: CALCIUM 9.4 mg/dL (8.5-10.1); POTASSIUM 4.1 mmol/L (3.5-5.1)
[2020-08-07 17:41] LABS: ALBUMIN 4.4 g/dL (3.4-5.0); TOTAL BILIRUBIN 0.5 mg/dL (<0.1-1.0)
[2020-08-07 20:50] VITALS: BP 144/71
[2020-08-08 00:18] VITALS: BP 152/74
[2020-08-08 07:16] LABS: URINE BILIRUBIN NEGATIVE (Negative); URINE BLOOD 1+ (Negative); URINE CLARITY CLEAR; URINE COLOR YELLOW; URINE GLUCOSE-RANDOM NEGATIVE (Negative); URINE KETONES 1+ (Negative); URINE LEUKOCYTES-REFLEX NEGATIVE (Negative); URINE NITRITE-REFLEX NEGATIVE (Negative); URINE PROTEIN NEGATIVE (Negative); URINE SPECIFIC GRAVITY 1.025 (1.005-1.030); URINE UROBILINOGEN 0.2 E.U./dl (0.2-1.0)
[2020-08-08 07:25] LABS: BACTERIA-REFLEX 1-9 Few /HPF (None Seen); CASTS None Seen /LPF (None Seen); CRYSTALS None Seen /LPF (None Seen); MUCUS 4-6 Moderate strn/LPF (None Seen); SQUAMOUS 0-3 Few /LPF (0-3); URINE RBC 3-10 Few /HPF (0-2); URINE WBC-REFLEX 0-5 Rare /HPF (0-5)
[2020-08-08 08:27] VITALS: BP 138/78
--- NOTE | 2020-08-08 09:03 | EKG ---
[place] [address] ELECTROCARDIOGRAM REPORT Name: JAMES HERNANDEZ Room: [place] [address] ADM IN .R.#: [id number] Admission: 08/07/20 Attend Phys: Iftikhar Jane, Discharge: Date of : 60 Date of Service: 08/07/20 1734 Report #: [id number] THIS REPORT FOR: //name// [facility] ED Test Date: 2020-08-07 Test Time: 17:34:20 Pat Name: JAMES MARY Department: Room: [facility] Gender: M Wellness Program Manager: CCD : 1960 Requested By: Azam Olea Order Number: [id number] MD: James Fatima Measurements Intervals [place] Rate: 60 P: 70 [place]: 191 QRS: 83 QRSD: 95 T: 61 QT: 431 QTc: 431 Interpretive Statements Sinus rhythm Borderline right axis deviation Compared to ECG 05/04/2020 05:20:28 No significant changes Electronically Signed On 08-08-2020 9:03:11 CAMP COUNSELOR by James Fatima [email or web address] <ELECTRONICALLY SIGNED> By: James Fatima MD, [facility] 08/08/20 0903 1734 1734 James Fatima MD, [facility] /EPI
[2020-08-08 15:30] VITALS: BP 169/92
[2020-08-08 20:00] VITALS: BP 134/76
[2020-08-09 04:24] LABS: HEMATOCRIT 39.6 % (42.0-52.0); MCH 31.3 pg (26.0-34.0); MCHC 33.7 g/dL (28.0-37.0); MCV 93.1 fL (80.0-100.0); MPV 7.6 fl. (7.2-11.1); RBC 4.26 mil/uL (4.50-6.00); RDW-CV 14.2 % (10.5-14.5); WBC 7.5 thou/uL (4.0-11.0)
[2020-08-09 04:40] LABS: CALCIUM 8.9 mg/dL (8.5-10.1); CREATININE 0.9 mg/dL (0.6-1.3); POTASSIUM 3.8 mmol/L (3.5-5.1)
[2020-08-09 05:05] LABS: HEMOGLOBIN 13.3 gm/dL (14.0-18.0)
[2020-08-09] MEDS ORDERED: HYDROCODON-ACE1 EAC7 PO (10:24)
[2020-08-09] MEDS ORDERED: ZOFRAN4 MG PO (11:08)
[2020-08-09 11:25] VITALS: BP 130/63
[2020-08-09 16:50] VITALS: BP 159/87
[2020-08-09 16:56] VITALS: BP 159/87
== END 2020-08-09 17:28 | disposition home or self-care (01) | DRG 440 ==
LOC: M.ERS 16:40 → M.TBA-ER 18:00 → M.2W 18:00
PROVIDERS: Family Medicine; ADMIT Internal Medicine; ATTEND Internal Medicine
DX: K85.90 Acute pancreatitis without necrosis or infection, unspecified (principal); H54.8 Legal blindness, as defined in USA; Z20.822 Contact with and (suspected) exposure to COVID-19; F32.9 Major depressive disorder, single episode, unspecified; G89.29 Other chronic pain; K59.00 Constipation, unspecified; M54.9 Dorsalgia, unspecified; G43.909 Migraine, unspecified, not intractable, without status migrainosus; Z88.6 Allergy status to analgesic agent; Z88.1 Allergy status to other antibiotic agents; Z88.8 Allergy status to other drugs, medicaments and biological substances; Z86.19 Personal history of other infectious and parasitic diseases; Z79.899 Other long term (current) drug therapy

== ENCOUNTER 2020-11-20 20:39 | Emergency (ER) | payer OTHER, MEDICAID ==
[~2020-11-20] VITALS: Ht 182.9 cm; Wt 78.0 kg
[~2020-11-20 20:39] MED LIST changes: +HYDROCODON-ACE1 EAC7 PO
[2020-11-20 20:59] LABS: ABSOLUTE BASOPHILS 0.1 thou/uL (0.0-0.2); ABSOLUTE LYMPHOCYTES 0.9 thou/uL (0.8-5.3); ABSOLUTE MONOCYTES 0.6 thou/uL (0.0-1.2); ABSOLUTE NEUTROPHILS 8.5 thou/uL (1.6-8.1); BASOPHILS 0.5 %; HEMATOCRIT 42.3 % (42.0-52.0); HEMOGLOBIN 14.8 gm/dL (14.0-18.0); LYMPHOCYTES 8.5 %; MCH 32.9 pg (26.0-34.0); MPV 7.4 fl. (7.2-11.1); NUCLEATED RBCS 0 /100WBC; PLATELET COUNT* 257 thou/uL (150-400); RDW-CV 13.6 % (10.5-14.5)
[2020-11-20 21:36] LABS: ALBUMIN 4.2 g/dL (3.4-5.0); MAGNESIUM 1.8 mg/dL (1.8-2.4); POTASSIUM 3.9 mmol/L (3.5-5.1); TOTAL BILIRUBIN 0.4 mg/dL (<0.1-1.0); TOTAL PROTEIN 7.5 g/dL (6.4-8.2)
[2020-11-20 21:41] LABS: CALCIUM 8.9 mg/dL (8.5-10.1)
[2020-11-20] MEDS ORDERED: ZOFRAN ODT4 MG PO (23:53)
[2020-11-20] MEDS ORDERED: TRAMADOL 50 MG50 MG PO (23:57)
[2020-11-21 00:38] VITALS: BP 132/78
--- NOTE | 2020-11-21 09:40 | EKG ---
[place] [address] ELECTROCARDIOGRAM REPORT Name: MARYTAJ Mason Room: [facility]#: [id number] Admission: 11/20/20 Attend Phys: Discharge: 11/21/20 Date of : 60 Date of Service: 11/20/202040 Report #: [id number] THIS REPORT FOR: //name// [facility] ED Test Date: 2020-11-20 Test Time: 20:41:56 Pat Name: TAJ HERNANDEZ Department: Room: Gender: Logistics Assistant: [facility] : 1960 Requested By: Radha Ryan Order Number: [id number] MD: Felix Lindo Measurements Intervals [place] Rate: 97 P: 70 MT: 179 QRS: 94 QRSD: 95 T: 41 QT: 356 QTc: 452 Interpretive Statements Sinus rhythm Probable left atrial enlargement Right axis deviation Compared to ECG 08/07/2020 17:34:20 No significant changes Electronically Signed On 11-21-2020 9:40:00 CDT by Felix Lindo [email or web address] <ELECTRONICALLY SIGNED> By: Felix Lindo MD, [facility] 11/21/20 0940 40 40 Felix Lindo MD, [facility] /EPI
== END 2020-11-21 00:38 | disposition home or self-care (01) ==
LOC: M.ERS 20:39
PROVIDERS: Emergency Medicine
DX: R11.2 Nausea with vomiting, unspecified (principal); R10.13 Epigastric pain; R10.11 Right upper quadrant pain; R06.02 Shortness of breath; R07.89 Other chest pain; F32.9 Major depressive disorder, single episode, unspecified; G43.909 Migraine, unspecified, not intractable, without status migrainosus; Z20.822 Contact with and (suspected) exposure to COVID-19; Z98.890 Other specified postprocedural states; Z91.030 Bee allergy status; Z88.1 Allergy status to other antibiotic agents; Z88.5 Allergy status to narcotic agent; Z88.6 Allergy status to analgesic agent

== ENCOUNTER 2021-03-05 14:02 | Observation (INO) | payer OTHER, MEDICAID ==
[~2021-03-05] VITALS: Ht 182.9 cm; Wt 78.9 kg
[~2021-03-05 14:02] MED LIST changes: +TRAMADOL 50 MG50 MG PO
[2021-03-05 14:14] VITALS: BP 141/105
[2021-03-05 16:01] LABS: URINE BILIRUBIN NEGATIVE (Negative); URINE BLOOD NEGATIVE (Negative); URINE CLARITY CLEAR; URINE COLOR YELLOW; URINE GLUCOSE-RANDOM NEGATIVE (Negative); URINE KETONES TRACE (Negative); URINE LEUKOCYTES-REFLEX NEGATIVE (Negative); URINE NITRITE-REFLEX NEGATIVE (Negative); URINE PROTEIN NEGATIVE (Negative); URINE SPECIFIC GRAVITY >= 1.030 (1.005-1.030); URINE UROBILINOGEN 0.2 E.U./dl (0.2-1.0)
[2021-03-05 16:09] LABS: ABSOLUTE BASOPHILS 0.1 thou/uL (0.0-0.2); ABSOLUTE EOSINOPHILS 0.1 thou/uL (0.0-0.7); ABSOLUTE LYMPHOCYTES 2.9 thou/uL (0.8-5.3); ABSOLUTE MONOCYTES 0.6 thou/uL (0.0-1.2); ABSOLUTE NEUTROPHILS 5.1 thou/uL (1.6-8.1); BASOPHILS 1.2 %; EOSINOPHILS 0.9 %; HEMATOCRIT 44.9 % (42.0-52.0); HEMOGLOBIN 14.9 gm/dL (14.0-18.0); LYMPHOCYTES 32.8 %; MCHC 33.3 g/dL (28.0-37.0); MCV 95.9 fL (80.0-100.0); MONOCYTES 7.1 %; MPV 7.1 fl. (7.2-11.1); NUCLEATED RBCS 0 /100WBC; PLATELET COUNT* 301 thou/uL (150-400); RBC 4.68 mil/uL (4.50-6.00); RDW-CV 14.3 % (10.5-14.5); WBC 8.8 thou/uL (4.0-11.0)
[2021-03-05 16:16] LABS: CALCIUM 9.3 mg/dL (8.5-10.1); CREATININE 0.9 mg/dL (0.6-1.3); POTASSIUM 4.1 mmol/L (3.5-5.1)
[2021-03-05 16:21] LABS: ALBUMIN 4.7 g/dL (3.4-5.0); TOTAL BILIRUBIN 0.3 mg/dL (<0.1-1.0); TOTAL PROTEIN 8.1 g/dL (6.4-8.2)
[2021-03-05 17:14] LABS: AMP/METHAMP Negative (Negative); BARBITURATES Negative (Negative); BENZODIAZEPINES Negative (Negative); COCAINE Negative (Negative); METHADONE Negative (Negative); OPIATES Negative (Negative); PCP Negative (Negative); THC POSITIVE (Negative)
[2021-03-05 22:00] VITALS: BP 134/76
[2021-03-06 02:00] VITALS: BP 139/79
[2021-03-06 06:00] VITALS: BP 131/68
--- NOTE | 2021-03-06 09:56 | EKG ---
[place] [address] ELECTROCARDIOGRAM REPORT Name: JAMES HERNANDEZ Room: [place] [address] ADM IN [facility].#: [id number] Admission: 03/05/21 Attend Phys: Caroline Pascual, Discharge: Date of : 60 Date of Service: 03/05/21 1641 Report #: [id number] THIS REPORT FOR: //name// [facility] ED Test Date: 2021-03-05 Test Time: 16:41:10 Pat Name: JAMES HERNANDEZ Department: Room: [facility] Gender: M Deputy City Clerk: FABIANA : 1960 Requested By: Roxi Priest Order Number: [id number] MD: James Fatima Measurements Intervals [place] Rate: 53 P: 66 ID: 188 QRS: 65 QRSD: 99 T: 64 QT: 447 QTc: 420 Interpretive Statements Sinus rhythm Baseline wander in lead(s) V2 Compared to ECG 11/20/2020 20:41:56 Right-axis deviation no longer present Electronically Signed On 03-06-2021 9:55:57 CDT by James Fatima [email or web address] <ELECTRONICALLY SIGNED> By: James Fatima MD, [facility] 03/06/21 0955 1641 164 James Fatima MD, [facility] /EPI
[2021-03-06 10:43] LABS: ABSOLUTE BASOPHILS 0.1 thou/uL (0.0-0.2); ABSOLUTE LYMPHOCYTES 2.4 thou/uL (0.8-5.3); ABSOLUTE MONOCYTES 0.5 thou/uL (0.0-1.2); ABSOLUTE NEUTROPHILS 4.6 thou/uL (1.6-8.1); BASOPHILS 0.8 %; EOSINOPHILS 0.7 %; HEMATOCRIT 42.6 % (42.0-52.0); HEMOGLOBIN 14.1 gm/dL (14.0-18.0); LYMPHOCYTES 31.3 %; MCH 31.9 pg (26.0-34.0); MCHC 33.2 g/dL (28.0-37.0); MCV 96.1 fL (80.0-100.0); MONOCYTES 6.1 %; MPV 7.1 fl. (7.2-11.1); NUCLEATED RBCS 0 /100WBC; PLATELET COUNT* 286 thou/uL (150-400); POLYS 61.1 %; RBC 4.43 mil/uL (4.50-6.00); RDW-CV 13.8 % (10.5-14.5); WBC 7.6 thou/uL (4.0-11.0)
[2021-03-06 10:58] LABS: ALBUMIN 4.2 g/dL (3.4-5.0); CALCIUM 8.5 mg/dL (8.5-10.1); CREATININE 0.9 mg/dL (0.6-1.3); POTASSIUM 4.1 mmol/L (3.5-5.1); TOTAL BILIRUBIN 0.7 mg/dL (<0.1-1.0); TOTAL PROTEIN 7.3 g/dL (6.4-8.2)
[2021-03-06 11:30] VITALS: BP 149/82
--- NOTE | 2021-03-06 15:09 | NUR ---
CM COMPLETED THE INITIAL ASSESSMENT WITH THE PT, WHO INDICATED HE LIVES IN A [place] ALONE AND HAS A TOTAL OF 20 STAIRS TO NAVIGATE BTWN INSIDE AND OUTSIDE. PT USES NO DMES. PT IS INDEPENDENT WITH ADLS. PT USES BETTER @ HOME IN HOME CARE SRVCE, C/G HELPS WITH CHORES AND SHOPPING 3 DAYS /3.75 HOURS. POC SUCH, ULTRASOUND AND GI CONSULT. NO CM DC NEEDS AT THIS TIME.
[2021-03-06 15:22] VITALS: BP 142/72
--- NOTE | 2021-03-06 15:23 | NUR ---
PT REPORTS HE FEELS LIKE HE HAS A MIGRAINE. PT HAS FREQUENT VOMITING AND STATES WHEN HE SITS UP HE WILL VOMIT. PT LYING ON RIGHT SIDE, GIVEN PHENERGAN AND ATIVAN PER REQUEST. PT GIVEN PILLOW, IS CONNECTED TO ALL MONITORS AND LIGHTS TURNED OFF PER PATIENT REQUEST. WILL CONTINUE TO MONITOR.
[2021-03-06 17:53] VITALS: BP 103/70
--- NOTE | 2021-03-06 18:53 | NUR ---
PATIENT ADMITTED TO [facility]/ROOM 214 FROM ED VIA BED ACCOMPANIED BY ED NURSE JOSE. PATIENT ADMITTED FOR ABDOMINAL PAIN. ALERT AND ORIENTED X4. HISTORY WITH BLINDNESS. 20G IV TO RIGHT FOREARM, NORMAL SALINE AT 100MLS/HR. PATIENT ORIENTED TO ROOM AND FLOOR. ALL QUESTIONS AND CONCERNS ADDRESSED.
[2021-03-06 20:15] VITALS: BP 119/62
[2021-03-07 05:27] VITALS: BP 122/62
--- NOTE | 2021-03-07 06:32 | NUR ---
PT SLEPT WELL MOST OF THE NIGHT. UP EARLY THIS MORNING AMBULATING WITH ASSIST TO BR FOR LOOSE BM. BLIND, ABLE TO USE URINAL INDEP FROM BED. RFA IVF INFUSING PER PUMP. NPO, SWABS GIVEN FOR COMFORT. CO R FLANK PAIN RADIATING AROUND TO ABDOMEN THIS MORNING, IV PAIN MED AND ZOFRAN GIVEN WITH GOOD RESULT. ABLE TO USE CALL LITE AND MAKE NEEDS KNOWN. BED ALARM ON FOR SAFETY.
[2021-03-07 08:00] VITALS: BP 167/90
[2021-03-07 08:51] LABS: ABSOLUTE BASOPHILS 0.1 thou/uL (0.0-0.2); ABSOLUTE EOSINOPHILS 0.1 thou/uL (0.0-0.7); ABSOLUTE LYMPHOCYTES 2.2 thou/uL (0.8-5.3); ABSOLUTE MONOCYTES 0.5 thou/uL (0.0-1.2); ABSOLUTE NEUTROPHILS 4.4 thou/uL (1.6-8.1); BASOPHILS 0.7 %; EOSINOPHILS 0.7 %; HEMATOCRIT 39.6 % (42.0-52.0); HEMOGLOBIN 13.5 gm/dL (14.0-18.0); LYMPHOCYTES 30.6 %; MCH 32.5 pg (26.0-34.0); MCHC 34.2 g/dL (28.0-37.0); MCV 95.1 fL (80.0-100.0); MONOCYTES 7.1 %; MPV 7.2 fl. (7.2-11.1); NUCLEATED RBCS 0 /100WBC; PLATELET COUNT* 263 thou/uL (150-400); POLYS 60.9 %; RBC 4.16 mil/uL (4.50-6.00); RDW-CV 13.8 % (10.5-14.5); WBC 7.3 thou/uL (4.0-11.0)
[2021-03-07 08:58] LABS: CALCIUM 8.7 mg/dL (8.5-10.1); CREATININE 0.9 mg/dL (0.6-1.3); POTASSIUM 3.7 mmol/L (3.5-5.1)
[2021-03-07 12:00] VITALS: BP 159/86
[2021-03-07 12:04] VITALS: BP 167/90
== END 2021-03-07 14:10 | disposition home or self-care (01) ==
LOC: M.ERS 14:02 → M.TBA-ER 17:53 → M.2W 17:53
PROVIDERS: Internal Medicine; Nurse Practitioner Family; ADMIT Internal Medicine; ATTEND Internal Medicine
DX: R11.15 Cyclical vomiting syndrome unrelated to migraine (principal); Z20.822 Contact with and (suspected) exposure to COVID-19; F12.20 Cannabis dependence, uncomplicated; R93.429 Abnormal radiologic findings on diagnostic imaging of unspecified kidney; K85.90 Acute pancreatitis without necrosis or infection, unspecified; K80.20 Calculus of gallbladder without cholecystitis without obstruction; N20.0 Calculus of kidney; K44.9 Diaphragmatic hernia without obstruction or gangrene; Z87.891 Personal history of nicotine dependence; Z79.899 Other long term (current) drug therapy

== ENCOUNTER 2021-08-02 17:02 | Emergency (ER) | payer MEDICARE, MEDICAID ==
[~2021-08-02] VITALS: Ht 182.9 cm; Wt 76.7 kg
[2021-08-02] MEDS ORDERED: NORVASC 2.5 MG2.5 M1 PO (17:26)
[2021-08-02 19:48] LABS: URINE BILIRUBIN NEGATIVE (Negative); URINE BLOOD NEGATIVE (Negative); URINE CLARITY CLEAR; URINE COLOR YELLOW; URINE GLUCOSE-RANDOM NEGATIVE (Negative); URINE KETONES 2+ (Negative); URINE LEUKOCYTES-REFLEX NEGATIVE (Negative); URINE NITRITE-REFLEX NEGATIVE (Negative); URINE PROTEIN NEGATIVE (Negative); URINE SPECIFIC GRAVITY 1.025 (1.005-1.030); URINE UROBILINOGEN 0.2 E.U./dl (0.2-1.0)
[2021-08-02 21:37] VITALS: BP 136/80
== END 2021-08-02 21:39 | disposition home or self-care (01) ==
LOC: M.ERS 17:02
PROVIDERS: Physician Assistant Medical
DX: G89.29 Other chronic pain (principal); M54.9 Dorsalgia, unspecified; R30.9 Painful micturition, unspecified; R11.0 Nausea; R30.0 Dysuria; Z87.442 Personal history of urinary calculi; Z85.528 Personal history of other malignant neoplasm of kidney; Z91.030 Bee allergy status; Z88.1 Allergy status to other antibiotic agents; Z88.5 Allergy status to narcotic agent; Z88.6 Allergy status to analgesic agent